=== PATIENT | male | born 1950 | race Caucasian/White ===

== ENCOUNTER → 2016-07-18 | Outpatient (CLI) | payer MEDICARE, OTHER ==
[~2016-07-18] MED LIST: /ADVA50050 INH; /AUGM875TA OR; /TAMS4CA OR; ACET65TA OR; ALBU83IN INH; CHLO125TA PO; COZA100T2 PO; THEO300T14 PO; VENTAER IN; ZEST10TA OR
--- NOTE | 2016-07-18 09:46 | REP ---
TWO VIEW CHEST: Two views of the chest are performed and compared to prior study of 05/25/2012. There is mild streaky atelectasis or infiltrate in the left lower lobe. There is a small hiatal hernia. Heart is not enlarged. The mediastinal silhouette is unchanged. There are mild degenerative changes of the spine and curvature of the thoracic spine convex to the right. IMPRESSION: Mild fibroatelectasis or streaky infiltrate left lung base. Small hiatal hernia. Signed by James Perez MD 07/18/2016 04:55 P
[2016-07-18 12:48] LABS: BASO % 0.3 % (0.0-1.0); EOS # 0.1 K/mm3 (0.0-0.50); EOS % 1.4 % (0.0-3.0); LARGE UNSTAINED CELL # 0.2 K/mm3 (0.0-0.4); LARGE UNSTAINED CELL % 2.6 % (0.0-4.0); LYMPH # 1.2 K/mm3 (1.5-4.5); LYMPH % 13.8 % (24.0-44.0); MEAN CORPUSCULAR HEMOGLOBIN 30.4 pg (27.0-33.0); MEAN CORPUSCULAR HGB CONC 32.9 g/dl (32.0-36.5); MEAN CORPUSCULAR VOLUME 92.4 fl (80.0-96.0); MONO # 0.8 K/mm3 (0.0-0.8); MONO % 8.6 % (0.0-5.0); NEUTROPHILS # 6.6 K/mm3 (1.8-7.7); NEUTROPHILS % 73.4 % (36.0-66.0); PLATELET COUNT, AUTOMATED 285 k/mm3 (150-450); RED CELL DISTRIBUTION WIDTH 13.5 % (11.5-14.5)
[2016-07-18 13:12] LABS: ALBUMIN 3.4 GM/DL (3.2-5.2); ALBUMIN/GLOBULIN RATIO 0.89 (1.00-1.93); BILIRUBIN,TOTAL 0.6 MG/DL (0.2-1.0); CALCIUM LEVEL 8.8 MG/DL (8.8-10.2); CREATININE FOR GFR 1.42 MG/DL (0.70-1.30); GLOMERULAR FILTRATION RATE 52.9 (>49); POTASSIUM SERUM 4.3 MEQ/L (3.5-5.1); TOTAL PROTEIN 7.2 GM/DL (6.4-8.2)
== END ==
LOC: M ADAMS 09:13
PROVIDERS: ATTEND Family Medicine
DX: K44.9 Diaphragmatic hernia without obstruction or gangrene (principal); R05 Cough
CPT/HCPCS: 71020; 80053; 85025; G0463

== ENCOUNTER → 2016-09-07 | Outpatient (REF) | payer MEDICARE, OTHER | LOC: M SFHCADAM 08:15 | PROVIDERS: ATTEND Family Medicine | DX: J45.909 Unspecified asthma, uncomplicated (principal) ==

== ENCOUNTER → 2016-09-28 | Outpatient (REF) | payer MEDICARE, OTHER ==
[2016-09-28 13:35] LABS: ALBUMIN 3.6 GM/DL (3.2-5.2); ALBUMIN/GLOBULIN RATIO 0.97 (1.00-1.93); BILIRUBIN,TOTAL 0.5 MG/DL (0.2-1.0); CALCIUM LEVEL 9.1 MG/DL (8.8-10.2); CREATININE FOR GFR 1.31 MG/DL (0.70-1.30); FREE T4 0.92 NG/DL (0.76-1.46); GLOMERULAR FILTRATION RATE 57.9 (>49); POTASSIUM SERUM 4.8 MEQ/L (3.5-5.1); THEOPHYLLINE LEVEL 5.8 UG/ML (10.0-20.0); TOTAL PROTEIN 7.3 GM/DL (6.4-8.2)
== END ==
LOC: M SFHCADAM 12:08
PROVIDERS: ATTEND Family Medicine
DX: J45.909 Unspecified asthma, uncomplicated (principal); I10 Essential (primary) hypertension; R25.1 Tremor, unspecified

== ENCOUNTER → 2017-03-22 | Outpatient (REF) | payer MEDICARE, OTHER ==
[2017-03-22 13:08] LABS: ALBUMIN 3.6 GM/DL (3.2-5.2); ALKALINE PHOSPHATASE 112 U/L (45-117); ALT/SGPT 59 U/L (12-78); ANION GAP 6 MEQ/L (8-16); AST/SGOT 37 U/L (7-37); BILIRUBIN,TOTAL 0.4 MG/DL (0.2-1.0); BLOOD UREA NITROGEN 19 MG/DL (7-18); CALCIUM LEVEL 9.1 MG/DL (8.8-10.2); CARBON DIOXIDE LEVEL 28 MEQ/L (21-32); CHLORIDE LEVEL 107 MEQ/L (98-107); CREATININE FOR GFR 1.21 MG/DL (0.70-1.30); GLOMERULAR FILTRATION RATE > 60.0 (>49); GLUCOSE, FASTING 89 MG/DL (80-110); POTASSIUM SERUM 4.5 MEQ/L (3.5-5.1); SODIUM LEVEL 141 MEQ/L (136-145); TOTAL PROTEIN 7.2 GM/DL (6.4-8.2)
== END ==
LOC: M SFHCADAM 09:18
PROVIDERS: ATTEND Family Medicine
DX: N40.1 Benign prostatic hyperplasia with lower urinary tract symptoms (principal); I10 Essential (primary) hypertension
CPT/HCPCS: 80053; 84153; 93005; 95117; G0463

== ENCOUNTER → 2017-09-14 | Outpatient (REF) | payer MEDICARE, OTHER ==
[2017-09-14 14:05] LABS: COMPLEMENT C3 136 MG/DL (90-180); COMPLEMENT C4 24.4 MG/DL (10-40); IMMUNOGLOBULIN G 912 MG/DL (681-1648); IMMUNOGLOBULIN M 450 MG/DL (40-230)
== END ==
LOC: M LABDRWAD 12:06
DX: J30.1 Allergic rhinitis due to pollen (principal); J30.81 Allergic rhinitis due to animal (cat) (dog) hair and dander; J30.89 Other allergic rhinitis
CPT/HCPCS: 82785

== ENCOUNTER → 2017-10-05 | Outpatient (REF) | payer MEDICARE, OTHER ==
[2017-10-05 13:34] LABS: ALBUMIN 3.7 GM/DL (3.2-5.2); ALBUMIN/GLOBULIN RATIO 1.09 (1.00-1.93); ALKALINE PHOSPHATASE 103 U/L (45-117); ALT/SGPT 51 U/L (12-78); ANION GAP 4 MEQ/L (8-16); AST/SGOT 57 U/L (7-37); BILIRUBIN,TOTAL 0.5 MG/DL (0.2-1.0); BLOOD UREA NITROGEN 23 MG/DL (7-18); CALCIUM LEVEL 9.2 MG/DL (8.8-10.2); CARBON DIOXIDE LEVEL 28 MEQ/L (21-32); CHLORIDE LEVEL 111 MEQ/L (98-107); CREATININE FOR GFR 1.35 MG/DL (0.70-1.30); GLOMERULAR FILTRATION RATE 55.8 (>49); GLUCOSE, FASTING 95 MG/DL (70-100); POTASSIUM SERUM 4.8 MEQ/L (3.5-5.1); SODIUM LEVEL 143 MEQ/L (136-145); TOTAL PROTEIN 7.1 GM/DL (6.4-8.2)
== END ==
LOC: M SFHCADAM 12:23
DX: N40.1 Benign prostatic hyperplasia with lower urinary tract symptoms (principal)
CPT/HCPCS: 80053

== ENCOUNTER → 2018-03-29 | Outpatient (CLI) | payer MEDICARE, OTHER | LOC: M RAD 12:16 | DX: N40.1 Benign prostatic hyperplasia with lower urinary tract symptoms (principal); R39.198 Other difficulties with micturition; N32.0 Bladder-neck obstruction; N32.3 Diverticulum of bladder | CPT/HCPCS: 76857 ==

== ENCOUNTER → 2018-04-03 | Outpatient (CLI) | payer MEDICARE, OTHER | LOC: M ADAMS 08:27 | DX: M50.321 Other cervical disc degeneration at C4-C5 level (principal); M50.322 Other cervical disc degeneration at C5-C6 level; M50.323 Other cervical disc degeneration at C6-C7 level; M43.6 Torticollis | CPT/HCPCS: 72050; 80053 ==

== ENCOUNTER → 2018-04-03 | Outpatient (REF) | payer MEDICARE, OTHER ==
[2018-04-03 14:03] LABS: BASO # 0.1 10^3/uL (0.0-0.2); BASO % 0.6 % (0.0-1.0); EOS # 0.2 10^3/uL (0.0-0.50); HEMATOCRIT 42.4 % (42.0-52.0); IMMATURE GRANULOCYTE % 0.3 % (0-3.0); LYMPH # 1.4 10^3/uL (1.5-4.5); LYMPH % 17.1 % (24.0-44.0); MEAN CORPUSCULAR HEMOGLOBIN 31.2 pg (27.0-33.0); MEAN CORPUSCULAR VOLUME 94.4 fl (80.0-96.0); MONO # 0.7 10^3/uL (0.0-0.8); MONO % 8.2 % (0.0-5.0); NEUTROPHILS # 5.6 10^3/uL (1.8-7.7); NEUTROPHILS % 70.8 % (36.0-66.0); PLATELET COUNT, AUTOMATED 224 10^3/uL (150-450); RED BLOOD COUNT 4.49 10^6/uL (4.30-6.10); RED CELL DISTRIBUTION WIDTH 14.9 % (11.5-14.5)
[2018-04-03 14:28] LABS: ALBUMIN 3.6 GM/DL (3.2-5.2); ALKALINE PHOSPHATASE 112 U/L (45-117); ALT/SGPT 56 U/L (12-78); ANION GAP 8 MEQ/L (8-16); AST/SGOT 37 U/L (7-37); BILIRUBIN,TOTAL 0.4 MG/DL (0.2-1.0); BLOOD UREA NITROGEN 19 MG/DL (7-18); CALCIUM LEVEL 9.6 MG/DL (8.8-10.2); CARBON DIOXIDE LEVEL 28 MEQ/L (21-32); CHLORIDE LEVEL 107 MEQ/L (98-107); CREATININE FOR GFR 1.35 MG/DL (0.70-1.30); GLOMERULAR FILTRATION RATE 55.8 (>49); GLUCOSE, FASTING 99 MG/DL (70-100); POTASSIUM SERUM 4.3 MEQ/L (3.5-5.1); SODIUM LEVEL 143 MEQ/L (136-145); TOTAL PROTEIN 7.2 GM/DL (6.4-8.2)
== END ==
LOC: M SFHCADAM 12:24
DX: I10 Essential (primary) hypertension (principal)
CPT/HCPCS: 80053

== ENCOUNTER → 2018-04-09 | Outpatient (CLI) | payer MEDICARE, OTHER | LOC: M ADAMS 11:31 | DX: M19.071 Primary osteoarthritis, right ankle and foot (principal); L53.9 Erythematous condition, unspecified | CPT/HCPCS: 73630 ==

== ENCOUNTER → 2018-04-10 | Outpatient (REF) | payer MEDICARE, OTHER ==
[2018-04-10 13:27] LABS: APPEARANCE, URINE HAZY (CLEAR); BACTERIA, URINE AUTO NEGATIVE (NEGATIVE); BILIRUBIN, URINE AUTO NEGATIVE (NEGATIVE); BLOOD, URINE BLOOD NEGATIVE (NEGATIVE); COLOR, URINE YELLOW (YELLOW); GLUCOSE, URINE (UA) AUTO NEGATIVE (NEGATIVE); KETONE, URINE AUTO NEGATIVE (NEGATIVE); LEUKOCYTE ESTERASE, URINE AUTO NEGATIVE (NEGATIVE); MUCUS, URINE SMALL (NEGATIVE); NITRITE, URINE AUTO NEGATIVE (NEGATIVE); PROTEIN, URINE AUTO NEGATIVE (NEGATIVE); RBC, URINE AUTO 0 /HPF (0-3); SPECIFIC GRAVITY URINE AUTO 1.019 (1.002-1.035); SQUAMOUS EPITHELIAL CELL UR AU 0 /HPF (0-6); UROBILINOGEN, URINE AUTO 0.2 mg/dL (0.0-2.0); WBC, URINE AUTO 0 /HPF (0-3)
== END ==
LOC: M SMT 12:53
PROVIDERS: ATTEND Nurse Practitioner Family
DX: N40.1 Benign prostatic hyperplasia with lower urinary tract symptoms (principal)
CPT/HCPCS: 51798; 81001; 87086; G0463

== ENCOUNTER → 2018-11-01 | Outpatient (CLI) | payer MEDICARE, OTHER ==
[~2018-11-01] MED LIST changes: -/ADVA50050 INH; -/TAMS4CA OR; +ADVA1AER2 INH; +FLOM0.4C39 OR
--- NOTE | 2018-11-01 11:34 | REP ---
LEFT KNEE, FIVE VIEWS: HISTORY: Posterior pain. There is no acute fracture or dislocation. The joint spaces are normal in appearance. An osteophyte is present on the patella. IMPRESSION: There is no acute fracture or dislocation. Electronically Signed by Jose Howard MD 11/01/2018 11:44 A
== END ==
LOC: M ADAMS 10:41
PROVIDERS: ATTEND Family Medicine
DX: M25.762 Osteophyte, left knee (principal); M25.562 Pain in left knee
CPT/HCPCS: 73564; G0463

== ENCOUNTER 2018-12-09 12:29 | Day surgery (SDC) | payer MEDICARE, OTHER ==
[~2018-12-09] VITALS: Ht 160 cm; Wt 94.0 kg
[2018-12-09] MEDS ORDERED: SYMB80INH INH (12:37)
[2018-12-09] MEDS ORDERED: LOSA100T50 PO (12:37)
[2018-12-09] MEDS ORDERED: FINA5TAB2 PO (12:37)
[2018-12-09] MEDS ORDERED: PANT40TA3 PO (12:37)
[2018-12-09 13:12] LABS: BASO % 0.3 % (0.0-1.0); EOS % 0.1 % (0.0-3.0); HEMATOCRIT 43.1 % (42.0-52.0); HEMOGLOBIN 14.3 g/dl (13.5-17.5); LYMPH # 0.8 10^3/uL (1.5-4.5); LYMPH % 5.9 % (24.0-44.0); MEAN CORPUSCULAR HEMOGLOBIN 31.2 pg (27.0-33.0); MEAN CORPUSCULAR HGB CONC 33.2 g/dl (32.0-36.5); MEAN CORPUSCULAR VOLUME 93.9 fl (80.0-96.0); MONO # 0.3 10^3/uL (0.0-0.8); MONO % 2.2 % (0.0-5.0); NEUTROPHILS # 12.9 10^3/uL (1.8-7.7); NEUTROPHILS % 91.1 % (36.0-66.0); PLATELET COUNT, AUTOMATED 226 10^3/uL (150-450); RED BLOOD COUNT 4.59 10^6/uL (4.30-6.10); WHITE BLOOD COUNT 14.2 10^3/uL (4.0-10.0)
[2018-12-09 13:43] LABS: ALBUMIN 3.8 GM/DL (3.2-5.2); BILIRUBIN,DIRECT 0.2 MG/DL (0.0-0.2); BILIRUBIN,TOTAL 0.6 MG/DL (0.2-1.0); CALCIUM LEVEL 9.3 MG/DL (8.8-10.2); CREATININE FOR GFR 1.45 MG/DL (0.70-1.30); GLOMERULAR FILTRATION RATE 51.2 (>42); POTASSIUM SERUM 4.4 MEQ/L (3.5-5.1); TOTAL PROTEIN 7.9 GM/DL (6.4-8.2)
[2018-12-09] MEDS ORDERED: MORPHINE 2 MG/ML 1ML VIAL (J2270) IV ONE (14:15)
[2018-12-09] MEDS ORDERED: ONDANSETRON 4MG/2ML VIAL (J2405) IV ONE (14:15)
[2018-12-09] MEDS ORDERED: KETOROLAC 30 MG/ML VIAL (J1885) IV ONE (14:15)
[2018-12-09] MEDS ORDERED: NS 500 ML IV ONE (14:30)
[2018-12-09] MEDS ORDERED: NS 1,000 ML IV ONE (15:45)
[2018-12-09] MEDS ORDERED: VITMTA PO (15:50)
[2018-12-09] MEDS ORDERED: VENTAER INH (15:50)
[2018-12-09] MEDS ORDERED: TAMS1CAP17 PO (15:50)
[2018-12-09] MEDS ORDERED: CONRAY-60 60% 50ML VIAL (Q9961) As Ordered ONE (18:46)
[2018-12-09] MEDS ORDERED: LIDOCAINE 2% INJ 100 MG/5 ML SDV (FOR ANES.) As Ordered ONE (19:02)
[2018-12-09] MEDS ORDERED: propofoL 200 MG/20 ML VIAL As Ordered ONE ×3 (19:02→21:55)
[2018-12-09] MEDS ORDERED: ONDANSETRON 4MG/2ML VIAL (J2405) As Ordered ONE (19:02)
[2018-12-09] MEDS ORDERED: dexameTHASONE 4 MG/ML 1ML VIAL (J1100) As Ordered ONE (19:02)
[2018-12-09] MEDS ORDERED: fentaNYL 100 MCG/2 ML INJECTION (J3010) As Ordered ONE ×2 (19:03→20:34)
[2018-12-09] MEDS ORDERED: MIDAZOLAM INJ 2 MG/2 ML VIAL (J2250) As Ordered ONE (19:03)
[2018-12-09] MEDS ORDERED: CIPROFLOXACIN/D5W 400 MG/200 ML BAG (J0744) As Ordered ONE (19:45)
--- NOTE | 2018-12-09 19:59 | ECGEPIP ---
[facility] - ED Test Date: 2018-12-09 Pat Name: REGI CURRAN Department: Room: - Gender: Male Ordained Minister: MICHELLE : 1950 Requested By: Patrice House Order Number: [id number] Reading MD: Patrice House Measurements Intervals [place] Rate: 66 P: 35 VT: 181 QRS: QRSD: 105 T: 26 QT: 398 QTc: 417 Interpretive Statements SINUS RHYTHM POSSIBLE LEFT ATRIAL ENLARGEMENT MARKED LEFT AXIS DEVIATION Consider LAFB or inferior infarct LOW QRS VOLTAGE IN PRECORDIAL LEADS INCOMPLETE RIGHT BUNDLE BRANCH BLOCK POSSIBLE ANTERIOR MYOCARDIAL INFARCTION, PROBABLY OLD NO PRIOR ECG FOR COMPARISON Electronically Signed on 12-09-2018 19:59:13 EDT by Patrice House
[2018-12-09] MEDS ORDERED: PERCOCET 5MG/325MG TAB PO PRN (22:45)
[2018-12-09] MEDS ORDERED: ONDANSETRON 4MG/2ML VIAL (J2405) IV PRN (22:45)
[2018-12-09] MEDS ORDERED: oxyCODONE 5MG TAB PO PRN (22:45)
[2018-12-09] MEDS ORDERED: ACETAMINOPHEN 500 MG TAB PO PRN (22:45)
[2018-12-09] MEDS ORDERED: LR 1,000 ML IV SCH (22:45)
[2018-12-09] MEDS ORDERED: fentaNYL 100 MCG/2 ML INJECTION (J3010) IV PRN (22:45)
[2018-12-09] MEDS ORDERED: oxyBUTYnin 5 MG TAB PO PRN (22:45)
[2018-12-09] MEDS ORDERED: D5W/0.45% SODIUM CHLORIDE 1,000 ML IV SCH (22:45)
[2018-12-09 23:15] VITALS: BP 182/89
[2018-12-09 23:45] VITALS: BP 170/87
--- NOTE | 2018-12-09 23:47 | ROOPDOC ---
[facility] Report Of Operation Report of Operation DATE OF PROCEDURE: 12/09/18 PREPROCEDURE DIAGNOSES: Large distal left ureteral stone. POSTPROCEDURE DIAGNOSES: same. PROCEDURE: Cystoscopy, left retrograde pyelogram, left ureteroscopy with laser lithotripsy, and left ureteral stent placement. 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 endotracheal anesthesia. ESTIMATED BLOOD LOSS: Approximately 10 mL. COMPLICATIONS: None. REMARKS: Very large distal left ureteral stone with thinned and atretic overlying distal ureteral tissue. Stone broken into many fragments with laser. Almost all fragments removed and sent for analysis. 8 Lao multilength double- J ureteral stent placed. Hawley catheter placed for hematuria and history of BPH. PROCEDURE NOTE: This patient is a 68-year-old male with no prior history of known urolithiasis who presented to [facility] with new onset left flank pain.. The pain was rather intense and CT scan demonstrated a stone over 2 cm in size at the left ureterovesical junction with significant dilatation of the ureter. The patient was evaluated by the urology service in the emergency department and was counseled on the various treatment options going forward including the risks benefits and alternatives of each option. Expressed understanding of these options and elected for the above mentioned set of procedures. He was then admitted on a same-day care basis to the urology service and taken to the surgical holding area soon thereafter. DESCRIPTION OF PROCEDURE: Once the patient arrived in the preoperative holding area and full written informed consent was performed, the patient was evaluated by the anesthesiologist. He was then transferred from the preoperative holding area to the operating room. Once general endotracheal anesthesia was initiated he was placed into the dorsal lithotomy position. Draped in the usual sterile manner. The procedure by advancing a 22 Lao rigid cystoscope through the urethra and into the bladder. With the scope in position john cystoscopy was performed. A straight some moderate trabeculation of the bladder with several notable small diverticuli. It was quite difficult to identify the ureteral orifices particularly on the left because of what appeared to be a bulky stone elevating the left trigone. We were however eventually able to advance a zip wire into what appeared to be the left ureteral orifice. This wire curled around the stone and tented the ureteral orifice open enough to visualize some of the large stone. With this wire left in place. Then able to advance a second wire through the scope and beyond the stone up into the left kidney. The zip wire was removed and the other wire was secured to the draping as a safety wire. Reex amination of the left ureteral orifice demonstrated that with the wire in place a large portion of the stone could be visualized. At this point we advanced a 562 laser fiber through the cystoscope and connected to the holmium laser energy source. We then carefully broke the stone into many pieces using the laser energy. This took quite a long time as the stone was extremely large. Through this process we used a basket and removed several of the pieces of stone. Eventually once enough fragments of stone had been removed we used the cystoscopic stone crushing grasper to grasp the remaining larger fragments of stone. These fragments were also removed through the urethra. As were collected and sent for composition analysis. Cystoscopy was again performed and d emonstrated a number of stone fragments on the base of the bladder. The Jacked evacuator we then cleaned out the bladder which removed the vast majority of these remaining stone fragments. At this point there were no further stone fragments of any significant size remaining anywhere throughout the urethra, bladder or distal left ureter. This process had created a mild to moderate am ount of hematuria. At this point we advanced the cystoscope over the safety wire and attempted to advance a 6 Lao double-J ureteral stent. We encountered some resistance and exchanged the wire out for a superstiff wire. We also performed a retrograde pyelogram during this process through a open-ended ureteral catheter. After the retrograde pyelogram we again had some difficulty and changed to an 8 Lao double-J ureteral stent. Using this larger caliber ureteral stent and the superstiff wire we were able to get the double-J stent up into good position. This was confirmed with fluoroscopy which demonstrated the proximal curl of the double-J stent in good position in the left kidney and cystoscopy demonstrated the distal end of the stent in good position the bladder. We emptied out the bladder through the cystoscope sheath but decided to place a Hawley catheter given the patient's history of BPH and the hematuria. A 16 Lao Hawley catheter was placed into the bladder and connected to bag drainage. This back into the supine position. General anesthesia was discontinued. The patient was transferred to the recovery area. He had remained hemodynamically stable throughout the case. PLAN: The patient will remain overnight given that it is somewhat late. To urology for same-day care observation status. He will likely be discharged home in the morning with his Hawley catheter in place. We recommend that he follow-up in [facility] urology clinic in approximately 2-3 days time for removal of the Hawley catheter and trial of void. We also recommend that he be scheduled for a flexible cystoscopy in the [facility] urology office in about 2 weeks' time for removal of the left ureteral stent. KALI MEYER MD Dec 09, 2018 23:47
[2018-12-10] VITALS (7 sets, daily range): BP systolic 140–173; BP diastolic 79–91
[2018-12-10] MEDS ORDERED: LOSARTAN 50 MG TAB PO ONE (00:45)
[2018-12-10] MEDS ORDERED: CIPROFLOXACIN 500 MG TAB PO SCH (06:00)
--- NOTE | 2018-12-10 07:01 | REP ---
Retrograde pyelogram: A series of three intraoperative fluoroscopic views are performed during left ureteral stent placement: The final film demonstrates the proximal pigtail in satisfactory position. An upper pole felicity. The distal pigtails excluded at the film margin. Fluoroscopic exposure time is 57 seconds. The intraoperative fluoroscopic views are performed with last image hold technology and require no additional radiation. Electronically Signed by James Staton MD 12/10/2018 06:52 A
--- NOTE | 2018-12-10 07:13 | REP ---
CT ABDOMEN AND PELVIS WITHOUT CONTRAST: CT abdomen and pelvis was performed without oral or IV contrast. Sagittal and coronal reconstruction images are performed. There is mild bibasilar fibro atelectatic change in the visualized lung bases. There is a large hiatal hernia. There is mild pericardial fluid. Liver is grossly unremarkable are seen in an noninflamed gallbladder. Spleen, adrenals and pancreas are grossly unremarkable except for a small cyst in the upper pole approximately 1.7 cm in diameter. There is moderate left hydroureteronephrosis caused by a 2 cm stone at the ureteral vesical junction. There is mild atherosclerotic calcification of the abdominal aorta without aneurysm. There is no free air or free fluid. There is no bowel wall thickening. There is no evidence of appendicitis. There is diffuse sigmoid diverticulosis without evidence of acute diverticulitis. IMPRESSION: 2 cm calculus at the left uterovesical junction causes moderate left hydroureteronephrosis. Mild pericardial fluid. Gallstones in the gallbladder. Sigmoid diverticulosis without acute diverticulitis. Electronically Signed by James Perez MD 12/10/2018 09:13 A
[2018-12-10] MEDS ORDERED: TAMSULOSIN 0.4 MG CAP PO SCH (09:00)
--- NOTE | 2018-12-10 09:11 | IPNPDOC ---
Subjective Review oF Systems Chief Complaint The patient is a 68-year-old male admitted with a reason for visit of Left Ureteral Stone. Events since Last Encounter No acute events o/n. Patient denies pain. No n/v. No f/c/ns. Objective Physical Examination General Exam: Alert, Cooperative, No Acute Distress Chest Exam: Normal air movement ABDOMEN EXAM: Soft Skin Exam: Nl turgor and temperature Neuro Exam: Normal Speech Psych Exam: Mental status NL, Mood NL Other physical findings catheter draining dark pink urine w/ no clots Vital Signs/I&O Vital Signs Date Time Temp Pulse Resp B/P (MAP) Pulse Ox O2 Delivery O2 Flow Rate FiO2 12/10/18 04:15 98.1 59 18 166/86 (112) 95 12/09/18 22:20 4 12/09/18 15:32 Room Air I&O- Last 24 Hours up to 6 AM 12/10/18 06:00 Intake Total 2560 ml Output Total 910 ml Balance 1650 ml Laboratory Data Labs 24H Laboratory Tests 2 12/09/18 13:02: Immature Granulocyte % (Auto) 0.4, White Blood Count 14.2H, Red Blood Count 4.59, Hemoglobin 14.3, Hematocrit 43.1, Mean Corpuscular Volume 93.9, Mean Corpuscular Hemoglobin 31.2, Mean Corpuscular Hemoglobin Concent 33.2, Red Cell Distribution Width 14.4, Platelet Count 226, Neutrophils (%) (Auto) 91.1H, Lymphocytes (%) (Auto) 5.9L, Monocytes (%) (Auto) 2.2, Eosinophils (%) (Auto) 0.1, Basophils (%) (Auto) 0.3, Neutrophils # (Auto) 12.9H, Lymphocytes # (Auto) 0.8L, Monocytes # (Auto) 0.3, Eosinophils # (Auto) 0.0, Basophils # (Auto) 0.0, Nucleated Red Blood Cells % (auto) 0.0, Urine Color YELLOW, Urine Appearance CLEAR, Urine pH 6.0, Urine Specific [place] 1.013, Urine Protein NEGATIVE, Urine Glucose (UA) NEGATIVE, Urine Ketones NEGATIVE, Urine Blood NEGATIVE, Urine Nitrite NEGATIVE, Urine Bilirubin NEGATIVE, Urine Urobilinogen 0.2, Urine Leukocyte Esterase NEGATIVE, Urine WBC (Auto) 1, Urine RBC (Auto) 4H, Urine Hyaline Casts (Auto) 0, Urine Bacteria (Auto) NEGATIVE, Urine Squamous Epitheli al Cells 0, Urine Mucus (Auto) SMALL, Urine Sperm (Auto) , Anion Gap 8, Glomerular Filtration Rate 51.2, Calcium Level 9.3, Aspartate Amino Transf (AST/SGOT) 28, Alanine Aminotransferase (ALT/SGPT) 42, Alkaline Phosphatase 108, Total Bilirubin 0.6, Direct Bilirubin 0.2, Total Protein 7.9, Albumin 3.8, Albumin/Globulin Ratio 0.93L, Lipase 184 12/09/18 21:30: CBC/BMP Laboratory Tests 12/09/18 13:02 Red Blood Count 4.59, Mean Corpuscular Volume 93.9, Mean Corpuscular Hemoglobin 31.2, Mean Corpuscular Hemoglobin Concent 33.2, Red Cell Distribution Width 14.4, Neutrophils (%) (Auto) 91.1 H, Lymphocytes (%) (Auto) 5.9 L, Monocytes (%) (Auto) 2.2, Eosinophils (%) (Auto) 0.1, Basophils (%) (Auto) 0.3, Neutrophils # (Auto) 12.9 H, Lymphocytes # (Auto) 0.8 L, Monocytes # (Auto) 0.3, Eosinophils # (Auto) 0.0, Basophils # (Auto) 0.0 Assessment/Plan Date Seen The patient was seen on 12/10/18. Patient Summary This is a 68 y/o M POD1 s/p cysto, left ureteroscopy w/ laser lithotripsy and basket extraction of stones, and left ureteral stent placement. He is doing well. He has some hematuria, but not significant. The catheter has drained well. Plan/VTE VTE Prophylaxis Ordered?: Yes VTE Exclusion Mechanical Proph: N/A:VTE Prophy Ordered Plan - will perform a fill and pull and voiding trial - if patient is able to void will d/c home w/o a catheter - plan d/c home today - will f/u in 2-3 wks for stent removal w/ a KUB BRIAN Barboza MD Dec 10, 2018 09:11
--- NOTE | 2018-12-10 09:18 | REP ---
PORTABLE CHEST: AP portable view of the chest was performed. There is mild bibasilar fibro atelectatic change. There is mild left pleural thickening. There is a large hiatal hernia. There is mild left ventricular prominence. The mediastinal silhouette is unremarkable. IMPRESSION: Mild bibasilar fibro atelectasis. Hiatal hernia. Electronically Signed by James Perez MD 12/10/2018 09:37 A
[2018-12-10] MEDS ORDERED: CIPR500T3 PO (10:44)
[2018-12-16 14:28] LABS: COMMENT Note: (.); Uric Acid 93 % (.)
== END 2018-12-10 12:15 | disposition home or self-care (01) ==
LOC: M ED 12:29 → M SDC 19:07 → M PED 23:04 → M SDC 12-10 12:15
PROVIDERS: ATTEND Urology Pediatric Urology
DX: N20.1 Calculus of ureter (principal); I10 Essential (primary) hypertension; J45.909 Unspecified asthma, uncomplicated; Z79.899 Other long term (current) drug therapy; K21.9 Gastro-esophageal reflux disease without esophagitis
CPT/HCPCS: 52356; 71045; 74176; 74420; 80048; 80076; 81001; 82360; 83690; 85025; 88300; 93005; 96361; 96374; 96375; 99284; C1769; C2617; J0744; J1100; J1885; J2250; J2270; J2405; J3010; Q9961

== ENCOUNTER 2018-12-15 10:10 | Emergency (ER) | payer MEDICARE, OTHER ==
[~2018-12-15] VITALS: Ht 160 cm; Wt 90.9 kg
[~2018-12-15 10:10] MED LIST changes: +CIPR500T3 PO; +FINA5TAB2 PO; +LOSA100T50 PO; +PANT40TA3 PO; +SYMB80INH INH; +TAMS1CAP17 PO; +VENTAER INH; +VITMTA PO
[2018-12-15] MEDS ORDERED: OXYC1TAB23 (10:17)
[2018-12-15] MEDS ORDERED: PHEN-501 (10:17)
[2018-12-15 11:07] LABS: BASO % 0.2 % (0.0-1.0); EOS # 0.1 10^3/uL (0.0-0.50); EOS % 0.7 % (0.0-3.0); HEMATOCRIT 39.1 % (42.0-52.0); HEMOGLOBIN 13.4 g/dl (13.5-17.5); LYMPH # 1.3 10^3/uL (1.5-4.5); LYMPH % 10.5 % (24.0-44.0); MEAN CORPUSCULAR HEMOGLOBIN 30.9 pg (27.0-33.0); MEAN CORPUSCULAR HGB CONC 34.3 g/dl (32.0-36.5); MEAN CORPUSCULAR VOLUME 90.3 fl (80.0-96.0); MONO # 1.1 10^3/uL (0.0-0.8); MONO % 8.8 % (0.0-5.0); NEUTROPHILS # 9.8 10^3/uL (1.8-7.7); NEUTROPHILS % 79.4 % (36.0-66.0); PLATELET COUNT, AUTOMATED 183 10^3/uL (150-450); RED BLOOD COUNT 4.33 10^6/uL (4.30-6.10); WHITE BLOOD COUNT 12.3 10^3/uL (4.0-10.0)
[2018-12-15 11:32] LABS: CREATININE FOR GFR 1.28 MG/DL (0.70-1.30); GLOMERULAR FILTRATION RATE 59.1 (>42); POTASSIUM SERUM 4.1 MEQ/L (3.5-5.1)
--- NOTE | 2018-12-15 11:37 | REP ---
Supine abdomen two views: The bowel gas pattern is normal. There is a moderate volume of fecal residue in the descending colon. There is a small metallic density on the right. There is a left ureteral stent. There are no calcifications. The skeletal structures and soft tissues otherwise are unremarkable. Electronically Signed by James Staton MD 12/15/2018 11:29 A
[2018-12-15] MEDS ORDERED: CIPR-249 PO (13:14)
[2018-12-15] MEDS ORDERED: COLA100C5 PO (13:14)
[2018-12-15] MEDS ORDERED: DOCUSATE SODIUM 100 MG CAP PO ONE (13:15)
[2018-12-15] MEDS ORDERED: CIPROFLOXACIN 500 MG TAB PO ONE (13:15)
[2018-12-15 13:33] VITALS: BP 175/100
== END 2018-12-15 13:57 | disposition home or self-care (01) ==
LOC: M ED 10:10
DX: N39.0 Urinary tract infection, site not specified (principal); N40.0 Benign prostatic hyperplasia without lower urinary tract symptoms; J30.89 Other allergic rhinitis; Z79.899 Other long term (current) drug therapy

== ENCOUNTER → 2019-03-08 | Outpatient (REF) | payer MEDICARE, OTHER ==
[~2019-03-08] MED LIST changes: +CIPR-249 PO; +COLA100C5 PO; +OXYC1TAB23; +PHEN-501
== END ==
LOC: M LABDRWAD 13:13
PROVIDERS: ATTEND Urology
DX: N20.0 Calculus of kidney (principal); Z12.5 Encounter for screening for malignant neoplasm of prostate

== ENCOUNTER → 2019-06-11 | Outpatient (REF) | payer MEDICARE, OTHER ==
[2019-06-11 13:31] LABS: BASO # 0.1 10^3/uL (0.0-0.2); BASO % 0.6 % (0.0-1.0); EOS # 0.4 10^3/uL (0.0-0.5); EOS % 5.3 % (0.0-3.0); HEMATOCRIT 41.2 % (42.0-52.0); HEMOGLOBIN 13.3 g/dl (13.5-17.5); LYMPH # 1.6 10^3/uL (1.5-5.0); LYMPH % 20.1 % (24.0-44.0); MEAN CORPUSCULAR HEMOGLOBIN 30.4 pg (27.0-33.0); MEAN CORPUSCULAR HGB CONC 32.3 g/dl (32.0-36.5); MEAN CORPUSCULAR VOLUME 94.3 fl (80.0-96.0); MONO # 0.9 10^3/uL (0.0-0.8); MONO % 10.5 % (0.0-5.0); NEUTROPHILS # 5.1 10^3/uL (1.5-8.5); PLATELET COUNT, AUTOMATED 271 10^3/uL (150-450); RED BLOOD COUNT 4.37 10^6/uL (4.30-6.10); WHITE BLOOD COUNT 8.1 10^3/uL (4.0-10.0)
[2019-06-11 13:49] LABS: ALBUMIN 3.4 GM/DL (3.2-5.2); BILIRUBIN,TOTAL 0.5 MG/DL (0.2-1.0); CALCIUM LEVEL 9.2 MG/DL (8.8-10.2); CHOLESTEROL RISK RATIO 4.12 (<5); CREATININE FOR GFR 1.5 MG/DL (0.70-1.30); GLOMERULAR FILTRATION RATE 49.3 (>42); THYROID STIMULATING HORMONE 5.23 uIU/ML (0.358-3.740); TOTAL PROTEIN 7.1 GM/DL (6.4-8.2)
== END ==
LOC: M SFHCADAM 07:52
PROVIDERS: ATTEND Family Medicine
DX: I10 Essential (primary) hypertension (principal)

== ENCOUNTER → 2019-06-24 | Outpatient (CLI) | payer MEDICARE, OTHER ==
--- NOTE | 2019-06-24 11:14 | REP ---
Chest x-ray: Two views. History: Chest tightness. Comparison chest x-ray: December 09, 2018. Findings: There is a large hiatal hernia behind the heart. The lungs are well inflated and otherwise clear. Pleural angles are sharp. Heart size is normal. Pulmonary vasculature is not increased. No significant bony abnormality is seen. There are some degenerative changes in the thoracic spine. Impression: Large hiatal hernia. Otherwise no active disease. Electronically Signed by Simon Mercado MD 06/24/2019 11:05 A
== END ==
LOC: M ADAMS 09:20
PROVIDERS: ATTEND Family Medicine
DX: K44.9 Diaphragmatic hernia without obstruction or gangrene (principal); M51.34 Other intervertebral disc degeneration, thoracic region; R07.89 Other chest pain
CPT/HCPCS: 71046; G0463

== ENCOUNTER → 2019-07-08 | Outpatient (CLI) | payer MEDICARE, OTHER ==
--- NOTE | 2019-07-08 10:23 | REP ---
Clinical: Three uric acid stones. Technique: Real time bernardo scale ultrasound examination using curved array transducer. Findings: Bilateral kidneys demonstrate increased parenchymal echogenicity suggesting chronic age-related changes without hydronephrosis or perinephric stranding. The right kidney measures 11.3 x 5.9 x 4.9 cm and includes 1.8 cm and 1.9 cm simple upper pole cysts and 2.5 cm peripelvic cyst. The left ovary measures 10.7 x 4.4 x 5.7 cm and includes 1.4 cm, and 2.2 cm simple peripelvic cysts along with a 1 cm simple cortical cyst. Bladder is grossly unremarkable. Impression: Evidence for chronic medical renal disease and bilateral renal cysts. Electronically Signed by Hayes Prince MD 07/08/2019 10:14 A
== END ==
LOC: M RAD 09:44
PROVIDERS: ATTEND Urology
DX: Q61.02 Congenital multiple renal cysts (principal); N20.0 Calculus of kidney; R79.89 Other specified abnormal findings of blood chemistry; Z79.899 Other long term (current) drug therapy
CPT/HCPCS: 76775; 84439; 84443; G0463

== ENCOUNTER → 2019-07-08 | Outpatient (REF) | payer MEDICARE, OTHER ==
[2019-07-08 14:07] LABS: FREE T4 0.89 NG/DL (0.76-1.46); THYROID STIMULATING HORMONE 3.63 uIU/ML (0.358-3.740)
== END ==
LOC: M SFHCADAM 09:04
PROVIDERS: ATTEND Family Medicine
DX: R79.89 Other specified abnormal findings of blood chemistry (principal); Z79.899 Other long term (current) drug therapy

== ENCOUNTER → 2019-10-03 | Outpatient (REF) | payer MEDICARE, OTHER ==
[2019-10-03 13:46] LABS: CHOLESTEROL RISK RATIO 3.74 (<5)
== END ==
LOC: M SFHCADAM 08:15
PROVIDERS: ATTEND Family Medicine
DX: E78.2 Mixed hyperlipidemia (principal)

== ENCOUNTER → 2019-11-01 | Outpatient (CLI) | payer MEDICARE, OTHER | LOC: M LABSMTC 11:07 | PROVIDERS: ATTEND Anesthesiology | DX: Z11.59 Encounter for screening for other viral diseases (principal) | CPT/HCPCS: C9803; U0003 ==

== ENCOUNTER 2019-11-04 10:19 | Day surgery (SDC) | payer MEDICARE, OTHER ==
[~2019-11-04] VITALS: Ht 160 cm; Wt 91.2 kg
[~2019-11-04 10:19] MED LIST changes: +NS 1,000 ML IV ONE; +PANT40TA29 PO; -PANT40TA3 PO
[2019-11-04] MEDS ORDERED: propofoL 200 MG/20 ML VIAL As Ordered ONE ×2 (11:07→11:41)
--- NOTE | 2019-11-04 11:23 | ROOR ---
Patient Name: Jose Smith Procedure Date: 11/04/2019 11:02 AM Date of : 1950 Age: 69 Room: [facility] Gender: Male Note Status: Finalized Procedure: Total Colonoscopy to Cecum Indications: High risk colon cancer surveillance: Personal history of colonic polyps, Last colonoscopy: 2015 Providers: Carmine Chandler MD Referring MD: Brenda CHARLTON DO Requesting Provider: Medicines: Monitored Anesthesia Care Complications: No immediate complications. Procedure: Pre-Anesthesia Assessment: - The heart rate, respiratory rate, oxygen saturations, blood pressure, adequacy of pulmonary ventilation, and response to care were monitored throughout the procedure. The Colonoscope was introduced through the anus and advanced to the cecum, identified by appendiceal orifice and ileocecal valve. The colonoscopy was performed without difficulty. The patient tolerated the procedure well. The quality of the bowel preparation was good. Findings: The perianal and digital rectal examinations were normal. Non-bleeding internal hemorrhoids were found during retroflexion. The hemorrhoids were small and Grade I (internal hemorrhoids that do not prolapse). Multiple small and large-mouthed diverticula were found in the recto-sigmoid colon, sigmoid colon and descending colon. The exam was otherwise without abnormality on direct and retroflexion views. Impression: - Non-bleeding internal hemorrhoids. - Diverticulosis in the recto-sigmoid colon, in the sigmoid colon and in the descending colon. - The examination was otherwise normal on direct and retroflexion views. - No specimens collected. - The exam was otherwise normal to the cecum. Recommendation: - Patient has a contact number available for emergencies. The signs and symptoms of potential delayed complications were discussed with the patient. Return to normal activities tomorrow. Written discharge instructions were provided to the patient. - High fiber diet. - Discharge patient to home. - Continue present medications. - Repeat colonoscopy for symptoms only. - Return to referring physician. - The findings and recommendations were discussed with the patient's family. Carmine Chandler MD Carmine Chandler MD 11/04/2019 11:22:45 AM Electronically signed by Carmine Chandler MD Number of Addenda: 0 Note Initiated On: 11/04/2019 11:02 AM Estimated Blood Loss: Estimated blood loss: none.
[2019-11-04 11:55] VITALS: BP 160/91
== END 2019-11-04 12:04 | disposition home or self-care (01) ==
LOC: M OPP 10:19
PROVIDERS: ATTEND Internal Medicine Gastroenterology
DX: Z12.11 Encounter for screening for malignant neoplasm of colon (principal); K64.0 First degree hemorrhoids; K57.30 Diverticulosis of large intestine without perforation or abscess without bleeding; Z79.899 Other long term (current) drug therapy; Z91.018 Allergy to other foods

== ENCOUNTER → 2019-12-24 | Outpatient (REF) | payer MEDICARE, OTHER ==
[~2019-12-24] MED LIST changes: -NS 1,000 ML IV ONE
[2020-01-30 09:58] LABS: ANTINUCLEAR ANTIBODIES DIRECT See Separate Report; Lyme Disease IgG/IgM Antibodie See Separate Report
[2020-02-05 10:54] LABS: ALBUMIN 3.6 GM/DL (3.2-5.2); ALT/SGPT 41 U/L (12-78); BILIRUBIN,TOTAL 0.7 MG/DL (0.2-1.0); BLOOD UREA NITROGEN 20 MG/DL (7-18); CALCIUM LEVEL 9.1 MG/DL (8.8-10.2); CARBON DIOXIDE LEVEL 27 MEQ/L (21-32); CHLORIDE LEVEL 109 MEQ/L (98-107); CREATININE FOR GFR 1.29 MG/DL (0.70-1.30); GLOMERULAR FILTRATION RATE 58.5 (>42); GLUCOSE, FASTING 82 MG/DL (70-100); POTASSIUM SERUM 4.3 MEQ/L (3.5-5.1); SODIUM LEVEL 139 MEQ/L (136-145); TOTAL PROTEIN 7.2 GM/DL (6.4-8.2); TROPONIN I < 0.02 NG/ML (< 0.10)
== END ==
LOC: M SFHCADAM 17:03
PROVIDERS: ATTEND Family Medicine
DX: M25.50 Pain in unspecified joint (principal); R70.0 Elevated erythrocyte sedimentation rate; M79.10 Myalgia, unspecified site

== ENCOUNTER → 2020-01-17 | Outpatient (REF) | payer MEDICARE, OTHER ==
[2020-01-17 19:33] LABS: C REACTIVE PROTEIN QUANTITATIV 0.98 MG/DL (0.00-0.30); CPK CREATINE PHOSPHOKINASE 145 U/L (39-308); LDH LACTATE DEHYDROGENASE 185 U/L (87-241); RHEUMATOID FACTOR QUANT < 10.0 IU/ML (<15.0)
== END ==
LOC: M LABDRWAD 17:49
PROVIDERS: ATTEND Family Medicine
DX: M25.60 Stiffness of unspecified joint, not elsewhere classified (principal); M62.81 Muscle weakness (generalized)

== ENCOUNTER → 2020-03-04 | Outpatient (REF) | payer MEDICARE, OTHER | LOC: M SFHCADAM 09:12 | PROVIDERS: ATTEND Nurse Practitioner Women's Health | DX: Z12.5 Encounter for screening for malignant neoplasm of prostate (principal) | CPT/HCPCS: G0103; G0463 ==

== ENCOUNTER → 2020-10-15 | Outpatient (CLI) | payer MEDICARE, OTHER ==
--- NOTE | 2020-10-15 12:14 | REP ---
INDICATION: LEFT LEG SWELLING. COMPARISON: Comparison study January 14, 2012.. TECHNIQUE: Left {lower extremity duplex venous scanning is performed from the groin to the ankle level. FINDINGS: The deep veins are anechoic and fully compressible from the groin to the popliteal fossa in the left lower extremity. Color flow imaging is homogeneous. Spectral Doppler interrogation demonstrates intact respiratory variation in flow and normal manual augmentation of flow. There is no evidence of deep vein thrombosis above the knee. There is no evidence of DVT in the visualized calf veins. Anterior tibial veins not seen due to edema. Doppler interrogation of the contralateral common femoral vein shows normal symmetric respiratory phasicity. IMPRESSION: No evidence of DVT in the left lower extremity femoropopliteal veins. No DVT in the visible portions of the calf veins. <Electronically signed by Davian Mercado > 10/15/20 [id number]
== END ==
LOC: M RAD 11:25
PROVIDERS: ATTEND Family Medicine
DX: M79.89 Other specified soft tissue disorders (principal)
CPT/HCPCS: 93971; 95117; G0463

== ENCOUNTER → 2021-06-29 | Outpatient (REF) | payer MEDICARE, OTHER ==
[~2021-06-29] MED LIST changes: +LOSA100T45 PO; -LOSA100T50 PO
[2021-06-29 12:57] LABS: HEMATOCRIT 41.5 % (42.0-52.0); HEMOGLOBIN 13.5 g/dl (13.5-17.5); LYMPH % 14.6 % (24.0-44.0); MEAN CORPUSCULAR HEMOGLOBIN 30.6 pg (27.0-33.0); MEAN CORPUSCULAR HGB CONC 32.5 g/dl (32.0-36.5); MEAN CORPUSCULAR VOLUME 94.1 fl (80.0-96.0); MONO % 10.1 % (2.0-8.0); NEUTROPHILS % 70.1 % (36.0-66.0); PLATELET COUNT, AUTOMATED 268 10^3/uL (150-450); RED BLOOD COUNT 4.41 10^6/uL (4.30-6.10); WHITE BLOOD COUNT 7.7 10^3/uL (4.0-10.0)
[2021-06-29 12:58] LABS: BASO # 0.1 10^3/uL (0.0-0.2); BASO % 0.6 % (0.0-1.0); EOS # 0.3 10^3/uL (0.0-0.5); EOS % 4.1 % (0.0-3.0); LYMPH # 1.1 10^3/uL (1.5-5.0); MONO # 0.8 10^3/uL (0.0-0.8); NEUTROPHILS # 5.4 10^3/uL (1.5-8.5)
[2021-06-29 13:36] LABS: ALBUMIN 3.5 GM/DL (3.2-5.2); BILIRUBIN,TOTAL 0.7 MG/DL (0.2-1.0); CALCIUM LEVEL 9.7 MG/DL (8.8-10.2); CHOLESTEROL RISK RATIO 3.232 (<5); CREATININE FOR GFR 1.52 MG/DL (0.70-1.30); GLOMERULAR FILTRATION RATE 48.2 (>42); POTASSIUM SERUM 4.3 MEQ/L (3.5-5.1); TOTAL PROTEIN 6.9 GM/DL (6.4-8.2)
== END ==
LOC: M SFHCADAM 08:35
PROVIDERS: ATTEND Family Medicine
DX: N40.1 Benign prostatic hyperplasia with lower urinary tract symptoms (principal); Z79.899 Other long term (current) drug therapy

== ENCOUNTER → 2021-09-13 | Outpatient (CLI) | payer MEDICARE, OTHER | LOC: M ADAMS 08:47 | PROVIDERS: ATTEND Allergy & Immunology | DX: J30.1 Allergic rhinitis due to pollen (principal); R05.3 Chronic cough; J32.0 Chronic maxillary sinusitis ==

== ENCOUNTER → 2021-11-02 | Outpatient (REF) | payer MEDICARE, OTHER ==
[2021-11-02 13:36] LABS: ALBUMIN 3.2 GM/DL (3.2-5.2); BILIRUBIN,TOTAL 0.6 MG/DL (0.2-1.0); CALCIUM LEVEL 8.8 MG/DL (8.8-10.2); CREATININE FOR GFR 1.61 MG/DL (0.70-1.30); POTASSIUM SERUM 3.9 MEQ/L (3.5-5.1); TOTAL PROTEIN 6.8 GM/DL (6.4-8.2)
== END ==
LOC: M SFHCADAM 09:01
PROVIDERS: ATTEND Family Medicine
DX: I10 Essential (primary) hypertension (principal)

== ENCOUNTER → 2021-12-09 | Outpatient (CLI) | payer MEDICARE, OTHER | LOC: M RAD 13:10 | PROVIDERS: ATTEND Family Medicine | DX: N18.31 Chronic kidney disease, stage 3a (principal); N28.1 Cyst of kidney, acquired ==

== ENCOUNTER → 2022-01-20 | Outpatient (REF) | payer MEDICARE, OTHER ==
[2022-01-20 13:48] LABS: CALCIUM LEVEL 9.3 MG/DL (8.8-10.2); CREATININE FOR GFR 1.49 MG/DL (0.70-1.30); GLOMERULAR FILTRATION RATE 49.2 (>42); POTASSIUM SERUM 4.5 MEQ/L (3.5-5.1)
== END ==
LOC: M SFHCADAM 08:33
PROVIDERS: ATTEND Family Medicine
DX: N18.31 Chronic kidney disease, stage 3a (principal)

== ENCOUNTER → 2022-05-04 | Outpatient (CLI) | payer MEDICARE, OTHER | LOC: M RAD 08:47 | PROVIDERS: ATTEND Internal Medicine Nephrology | DX: I70.1 Atherosclerosis of renal artery (principal) ==

== ENCOUNTER → 2022-12-20 | Outpatient (REF) | payer MEDICARE, OTHER ==
[~2022-12-20] MED LIST changes: -LOSA100T45 PO; +LOSA100T46 PO
[2022-12-20 14:33] LABS: ALBUMIN 3.6 G/DL (3.2-5.2); CALCIUM LEVEL 9.4 MG/DL (8.3-10.6); CREATININE FOR GFR 1.57 MG/DL (0.70-1.30); GLOMERULAR FILTRATION RATE 46.2 (>42); PHOSPHORUS LEVEL 2.5 MG/DL (2.4-5.1); POTASSIUM SERUM 4.4 MMOL/L (3.5-5.1)
== END ==
LOC: M SFHCADAM 13:20
PROVIDERS: ATTEND Physician Assistant Medical
DX: H53.2 Diplopia (principal)

== ENCOUNTER → 2022-12-27 | Outpatient (CLI) | payer MEDICARE, OTHER ==
[~2022-12-27] MED LIST changes: +PROHANCE 279.3MG/ML 5ML VIAL ONE
== END ==
LOC: M PLAIMG 09:22
PROVIDERS: ATTEND Physician Assistant Medical
DX: H53.2 Diplopia (principal); J32.9 Chronic sinusitis, unspecified; G31.9 Degenerative disease of nervous system, unspecified; R93.0 Abnormal findings on diagnostic imaging of skull and head, not elsewhere classified
CPT/HCPCS: 70544; 70553; A9576

== ENCOUNTER → 2023-01-02 | Outpatient (CLI) | payer MEDICARE, OTHER ==
[~2023-01-02] MED LIST changes: -PROHANCE 279.3MG/ML 5ML VIAL ONE
[2023-01-02 12:59] LABS: BASO # 0.1 10^3/uL (0.0-0.2); BASO % 0.6 % (0.0-1.0); EOS # 0.2 10^3/uL (0.0-0.5); EOS % 2.3 % (0.0-3.0); HEMATOCRIT 40.1 % (42.0-52.0); HEMOGLOBIN 13.5 g/dl (13.5-17.5); LYMPH # 1.9 10^3/uL (1.5-5.0); LYMPH % 19.4 % (24.0-44.0); MEAN CORPUSCULAR HEMOGLOBIN 31.4 pg (27.0-33.0); MEAN CORPUSCULAR HGB CONC 33.7 g/dl (32.0-36.5); MEAN CORPUSCULAR VOLUME 93.3 fl (80.0-96.0); MONO # 0.7 10^3/uL (0.0-0.8); MONO % 7.5 % (2.0-8.0); NEUTROPHILS # 6.7 10^3/uL (1.5-8.5); NEUTROPHILS % 69.8 % (36.0-66.0); PLATELET COUNT, AUTOMATED 266 10^3/uL (150-450); WHITE BLOOD COUNT 9.6 10^3/uL (4.0-10.0)
[2023-01-02 13:25] LABS: ERYTHROCYTE SEDIMENTATION RATE 36 mm/hr (0-20)
== END ==
LOC: M LAB 12:18
PROVIDERS: ATTEND Physician Assistant Medical
DX: G45.9 Transient cerebral ischemic attack, unspecified (principal)

== ENCOUNTER → 2023-06-12 | Outpatient (CLI) | payer MEDICARE, OTHER | LOC: M CARPUL 13:45 | PROVIDERS: ATTEND Family Medicine | DX: I10 Essential (primary) hypertension (principal); I27.20 Pulmonary hypertension, unspecified; I08.3 Combined rheumatic disorders of mitral, aortic and tricuspid valves; I31.39 Other pericardial effusion (noninflammatory) ==

== ENCOUNTER → 2023-06-13 | Outpatient (REF) | payer MEDICARE, OTHER ==
[2023-06-13 14:26] LABS: BASO # 0.1 10^3/uL (0.0-0.2); BASO % 0.6 % (0.0-1.0); EOS # 0.2 10^3/uL (0.0-0.5); EOS % 1.7 % (0.0-3.0); HEMATOCRIT 39.3 % (42.0-52.0); LYMPH # 1.5 10^3/uL (1.5-5.0); LYMPH % 14.8 % (24.0-44.0); MEAN CORPUSCULAR HEMOGLOBIN 31.8 pg (27.0-33.0); MEAN CORPUSCULAR HGB CONC 33.1 g/dl (32.0-36.5); MEAN CORPUSCULAR VOLUME 96.1 fl (80.0-96.0); MONO % 9.6 % (2.0-8.0); NEUTROPHILS # 7.6 10^3/uL (1.5-8.5); NEUTROPHILS % 72.9 % (36.0-66.0); PLATELET COUNT, AUTOMATED 277 10^3/uL (150-450); RED BLOOD COUNT 4.09 10^6/uL (4.30-6.10); WHITE BLOOD COUNT 10.4 10^3/uL (4.0-10.0)
== END ==
LOC: M SFHCADAM 08:06
PROVIDERS: ATTEND Family Medicine
DX: R20.9 Unspecified disturbances of skin sensation (principal)

== ENCOUNTER → 2023-08-30 | Outpatient (CLI) | payer MEDICARE, OTHER | LOC: M RAD 09:46 | PROVIDERS: ATTEND Internal Medicine Nephrology | DX: N28.1 Cyst of kidney, acquired (principal) ==

== ENCOUNTER → 2023-09-04 | Outpatient (CLI) | payer MEDICARE, OTHER | LOC: M CARPUL 09:05 | PROVIDERS: ATTEND Family Medicine | DX: I31.39 Other pericardial effusion (noninflammatory) (principal); I45.10 Unspecified right bundle-branch block ==

== ENCOUNTER → 2023-09-14 | Outpatient (REF) | payer MEDICARE, OTHER ==
[2023-09-14 13:08] LABS: ALBUMIN 3.3 G/DL (3.2-5.2); BILIRUBIN,TOTAL 0.5 MG/DL (0.3-1.2); CALCIUM LEVEL 9.4 MG/DL (8.3-10.6); CREATININE FOR GFR 1.66 MG/DL (0.70-1.30); GLOMERULAR FILTRATION RATE 43.3 (>42); POTASSIUM SERUM 4.6 MMOL/L (3.5-5.1); TOTAL PROTEIN 6.4 G/DL (5.7-8.2)
[2023-09-14 13:10] LABS: FREE T4 0.89 NG/DL (0.89-1.76)
[2023-09-14 13:11] LABS: THYROID STIMULATING HORMONE 3.259 uIU/ML (0.55-4.78)
== END ==
LOC: M SFHCADAM 09:17
PROVIDERS: ATTEND Family Medicine
DX: R25.1 Tremor, unspecified (principal)

== ENCOUNTER → 2023-11-21 | Outpatient (REF) | payer MEDICARE, OTHER | LOC: M LAB REF 16:26 | PROVIDERS: ATTEND Surgery | DX: D22.5 Melanocytic nevi of trunk (principal) ==

== ENCOUNTER → 2024-09-16 | Outpatient (REF) | payer MEDICARE, OTHER ==
[2024-09-16 13:55] LABS: BASO # 0.1 10^3/uL (0.0-0.2); BASO % 0.6 % (0.0-1.0); EOS # 0.5 10^3/uL (0.0-0.5); EOS % 5.2 % (0.0-3.0); HEMATOCRIT 40.7 % (42.0-52.0); HEMOGLOBIN 13.2 g/dl (13.5-17.5); LYMPH # 1.5 10^3/uL (1.5-5.0); LYMPH % 15.2 % (24.0-44.0); MEAN CORPUSCULAR HEMOGLOBIN 30.8 pg (27.0-33.0); MEAN CORPUSCULAR HGB CONC 32.4 g/dl (32.0-36.5); MEAN CORPUSCULAR VOLUME 95.1 fl (80.0-96.0); MONO # 0.8 10^3/uL (0.0-0.8); MONO % 8.8 % (2.0-8.0); NEUTROPHILS # 6.7 10^3/uL (1.5-8.5); NEUTROPHILS % 69.9 % (36.0-66.0); PLATELET COUNT, AUTOMATED 328 10^3/uL (150-450); RED BLOOD COUNT 4.28 10^6/uL (4.30-6.10); WHITE BLOOD COUNT 9.6 10^3/uL (4.0-10.0)
[2024-09-16 14:21] LABS: ALBUMIN 3.5 G/DL (3.2-5.2); BILIRUBIN,TOTAL 0.6 MG/DL (0.3-1.2); CALCIUM LEVEL 9.6 MG/DL (8.3-10.6); CHOLESTEROL RISK RATIO 2.55 (<5); CREATININE FOR GFR 1.66 MG/DL (0.70-1.30); GLOMERULAR FILTRATION RATE 42.5 (>42); HDL CHOLESTEROL 61.5 MG/DL (>40); LDL CHOLESTEROL 76.3 MG/DL (<100); NON-HDL-C 95.5 MG/DL; POTASSIUM SERUM 4.7 MMOL/L (3.5-5.1)
[2024-09-16 14:22] LABS: THYROID STIMULATING HORMONE 4.398 uIU/ML (0.55-4.78)
== END ==
LOC: M SFHCADAM 09:12
PROVIDERS: ATTEND Family Medicine
DX: Z00.00 Encounter for general adult medical examination without abnormal findings (principal); Z79.899 Other long term (current) drug therapy

== ENCOUNTER → 2024-09-16 | Outpatient (CLI) | payer MEDICARE, OTHER ==
[2024-09-16 13:57] LABS: C REACTIVE PROTEIN QUANTITATIV < 0.50 MG/DL (<1.0)
[2024-09-16 13:59] LABS: RHEUMATOID FACTOR QUANT < 3.5 IU/ML (<14)
[2024-09-18 15:53] LABS: ANA SCREEN, IFA NEGATIVE (NEGATIVE)
== END ==
LOC: M ADAMS 09:16
PROVIDERS: ATTEND Nurse Practitioner Adult Health
DX: I31.39 Other pericardial effusion (noninflammatory) (principal); I10 Essential (primary) hypertension

== ENCOUNTER → 2025-01-29 | Outpatient (REF) | payer MEDICARE, OTHER | LOC: M SFHCADAM 15:02 | PROVIDERS: ATTEND Physician Assistant Medical | DX: M35.3 Polymyalgia rheumatica (principal) ==

== ENCOUNTER → 2025-02-18 | Outpatient (REF) | payer MEDICARE, OTHER | LOC: M SFHCADAM 08:51 | PROVIDERS: ATTEND Family Medicine | DX: Z53.8 Procedure and treatment not carried out for other reasons (principal) ==

== ENCOUNTER → 2025-02-18 | Outpatient (CLI) | payer MEDICARE, OTHER ==
[2025-02-18 15:18] LABS: BASO # 0.1 10^3/uL (0.0-0.2); BASO % 0.5 % (0.0-1.0); EOS # 0.4 10^3/uL (0.0-0.5); EOS % 3.3 % (0.0-3.0); LYMPH # 1.5 10^3/uL (1.5-5.0); LYMPH % 13.6 % (24.0-44.0); MONO # 1.0 10^3/uL (0.0-0.8); MONO % 9.2 % (2.0-8.0); NEUTROPHILS # 8.1 10^3/uL (1.5-8.5); NEUTROPHILS % 73.0 % (36.0-66.0); PLATELET COUNT, AUTOMATED 316 10^3/uL (150-450)
[2025-02-18 15:52] LABS: C REACTIVE PROTEIN QUANTITATIV 1.96 MG/DL (<1.0)
[2025-02-18 15:54] LABS: ALT/SGPT 50 U/L (7.0-40); AST/SGOT 47 U/L (<34); CALCIUM LEVEL 8.7 MG/DL (8.3-10.6); CARBON DIOXIDE LEVEL 29 MMOL/L (20-31); CHLORIDE LEVEL 105 MMOL/L (98-107); CREATININE FOR GFR 1.73 MG/DL (0.70-1.30); FREE T4 1.07 NG/DL (0.89-1.76); GLOMERULAR FILTRATION RATE 40.4 (>42); POTASSIUM SERUM 4.3 MMOL/L (3.5-5.1); RHEUMATOID FACTOR QUANT < 3.5 IU/ML (<14); SODIUM LEVEL 142 MMOL/L (136-145)
[2025-02-21 19:48] LABS: LYME TOTAL ANTIBODY CIA <= 0.90 Index (<=0.90)
== END ==
LOC: M LABDRWAD 09:19
PROVIDERS: ATTEND Family Medicine
DX: M25.50 Pain in unspecified joint (principal); R53.83 Other fatigue

== ENCOUNTER → 2025-05-07 | Outpatient (REF) | payer MEDICARE, OTHER ==
[2025-05-07 13:04] LABS: PLATELET COUNT, AUTOMATED 196 10^3/uL (150-450)
[2025-05-07 13:22] LABS: INR 1.08
[2025-05-07 14:46] LABS: ALT/SGPT 27.0 U/L (7.0-40); AST/SGOT 29.0 U/L (<34); CALCIUM LEVEL 9.2 MG/DL (8.3-10.6); CARBON DIOXIDE LEVEL 30.0 MMOL/L (20-31); CHLORIDE LEVEL 105.0 MMOL/L (98-107); CREATININE FOR GFR 1.51 MG/DL (0.70-1.30); GLOMERULAR FILTRATION RATE 47.6 (>42); POTASSIUM SERUM 4.3 MMOL/L (3.5-5.1); SODIUM LEVEL 145.0 MMOL/L (136-145)
== END ==
LOC: M SFHCADAM 10:06
PROVIDERS: ATTEND Family Medicine
DX: R60.0 Localized edema (principal); M35.3 Polymyalgia rheumatica; N18.32 Chronic kidney disease, stage 3b; Z79.52 Long term (current) use of systemic steroids; M79.89 Other specified soft tissue disorders

== ENCOUNTER → 2025-05-07 | Outpatient (CLI) | payer MEDICARE, OTHER | LOC: M RAD 11:39 | PROVIDERS: ATTEND Physician Assistant | DX: I82.432 Acute embolism and thrombosis of left popliteal vein (principal); I82.452 Acute embolism and thrombosis of left peroneal vein; R60.0 Localized edema ==